=== PATIENT | male | born 2000 | race Caucasian/White ===

== ENCOUNTER 2024-09-20 17:56 | Emergency (ER) | payer BC, SELFPAY ==
--- NOTE | ~2024-09-20 | CT_ITS ---
CLINICAL INDICATION: Epigastric pain and coffee-ground emesis COMPARISON: None. TECHNIQUE: Multiple contiguous axial images of the abdomen and pelvis were performed following the ad ministration of with 100 mL Omnipaque-350 intravenous contrast The dose-length product (DLP) was 640.40 mGy-cm. Automated exposure control and iterative reconstruction technique were employed. FINDINGS/OBSERVATIONS: Visualized lower thorax: The bilateral lung bases are clear. The heart is of normal size, without pericardial effusion. Small hiatal hernia is noted Liver: The liver demonstrates homogeneous enhancement and is enlarged measuring 19 cm in longitudinal dimens ion. Gallbladder and biliary system: The gallbladder is only minimally distended, and otherwise unremarkable. Pancreas: The pancreas enhances homogeneously without ductal dilatation. Spleen: The spleen enhances homogeneously and is not enlarged measuring 9 cm in longitudinal dimension. Kidneys: The bilateral kidneys enhance symmetrically without hydronephrosis or renal calculi. Adrenal glands: Unremarkable. Gastrointestinal tract: The stomach is distended with simple fluid. Colonic diverticulosis without surrounding inflammatory change. No signs of obstruction present. Appendix: The air-filled appendix is of normal caliber (axial series, images 134 through 155) Vasculature: Unremarkable. Lymph nodes: No pathologically enlarged or morphologically suspicious lymph nodes within the retroperitoneum or at the root of the mesentery. Pelvic structures: The bladder is only minimally distended, and otherwise unremarkable. The prostate gland is not enlarged but demonstrates punctate calcifications. Body wall and musculoskeletal: Anterior superior compression of the L5 and S1 vertebral bodies, with sclerosis, likely chronic. IMPRESSION: No acute pathology is detected within the abdomen or pelvis, as detailed above. Reviewed, dictated and finalized at location A.
[2024-09-20 17:58] VITALS: BP 168/105; PULSE 110; RESP 16; TEMP 36.6; O2SAT 100
[2024-09-20] MEDS: PANTOPRAZOLE SODIUM IV 40 MG VIAL 80 MG IV PUSH (18:31)
[2024-09-20] MEDS: SODIUM CHLORIDE 0.9% IV 1,000 ML 999 ML IV CONT (18:31)
[2024-09-20] MEDS: ONDANSETRON INJ 4 MG/2 ML VIAL IV PUSH (18:31)
--- OUTSIDE RECORDS SUMMARY | 2024-09-20 18:31 | XMS_ITS | Clinical Summary ---
Author Organization [facility] Address [address] Abbasi: [place] [address] Care Team Providers Care Driller Hand Name Role Phone Unavailable Primary Care Provider Unavailabl e Allergies No known active allergies Medications benzonatate (TESSALON) 200 mg capsule Take 1 Capsule (200 mg) by mouth 3 times daily as needed for Cough. 30 Capsule 08/02/2024 Active Active Problems No known active problems Encounters Date Type Department Care Team Description 09/07/2024 External Device Data [facility] ABSTRACTION Provider, Abstract 08/27/2024 External Device Data [facility] ABSTRACTION Provider, Abstract 08/26/2024 External Device Data [facility] ABSTRACTION Provider, Abstract 08/23/2024 External Device Data [facility]STRACTION Provider, Abstract 08/10/2024 External Device Data [facility] ABSTRACTION Provider, Abstract 08/09/2024 External Device Data [facility] ABSTRACTION Provider, Abstract 08/09/2024 External Device Data [facility] ABSTRACTION Provider, Abstract 08/02/2024 9:15 AM COUNSELOR MANAGER Office Visit [facility] [address] [address] Joseph Delgadillo MD Upper respiratory tract infection, unspecified type (Primary Dx); Body aches from Last 3 Months Social History Tobacco Use Types Packs/Day Years Used Date Smoking Tobacco: Never Assessed Sex and Gender Information Value Date Recorded Sex Assigned at Not on file Legal Sex Male 2:28 PM COUNSELOR MANAGER Gender Identity Not on file Sexual Orientation Not on file Last Filed Vital Signs Vital Sign Reading Time Taken Comments Blood Pressure 124/72 08/02/2024 8:41 AM COUNSELOR MANAGER Pulse 134 08/02/2024 8:41 AM COUNSELOR MANAGER Temperature 37.4 C (99.3 F) 08/02/2024 8:41 AM COUNSELOR MANAGER Respiratory Rate 14 08/02/2024 8:41 AM COUNSELOR MANAGER Oxygen Saturation 98% 08/02/2024 8:41 AM COUNSELOR MANAGER Inhaled Oxygen Concentration - - Weight 83.9 kg (185 lb) 08/02/2024 8:41 AM COUNSELOR MANAGER Height 175.3 cm (5' 9 ) 08/02/2024 8:41 AM COUNSELOR MANAGER Body Mass Index 27.32 08/02/2024 8:41 AM COUNSELOR MANAGER Plan of Treatment Health Maintenance Due Date Last Done Comments HPV VACCINES (1 - Male 3-dose series) 2015 DTAP/TDAP/TD VACCINES (3 - Tdap) 2019 07/20/19, 2000 HEPATITIS B VACCINES (1 of 3 - 19+ 3-dose series) 2019 INFLUENZA VACCINE (#1) 2024 Procedures Procedure Name Priority Date/Time Associated Diagnosis Comments POC COVID-19 ANTIGEN Routine 08/02/2024 9:09 AM COUNSELOR MANAGER Body aches POC INFLUENZA A AND B ANTIGEN Routine 08/02/2024 9:00 AM COUNSELOR MANAGER Body aches from Last 3 Months Results * POC COVID-19 ANTIGEN (08/02/2024 9:09 AM COUNSELOR MANAGER) COVID-19 ANTIGEN POC Presumptively Negative Presumptively Negative [facility] INTERNAL KIT QC POC Pass Pass [facility] KIT LOT NUMBER POC [id number] [facility] KIT EXP DATE POC 04/30/2025 [facility] READ METHOD POC Visual [facility] Upper Respiratory 08/02/2024 9:09 AM COUNSELOR MANAGER Joseph Herrera Mai, MD POINT OF CARE TESTING Final Resu lt [facility] CLIA# [id number] [place] [address] * POC INFLUENZA A AND B ANTIGEN (08/02/2024 9:00 AM COUNSELOR MANAGER) INFLUENZA A AG POC Negative/Not Detected Negative/No t Detected [facility] INFLUENZA B AG POC Negative/Not Detected Negative/No t Detected [facility] INTERNAL KIT QC POC Pass Pass [facility] KIT LOT NUMBER POC [id number] [facility] KIT EXP DATE POC 03/21/2026 [facility] READ METHOD POC Visual [facility] Upper Respiratory ANTERIOR NARES SWAB / Unknown 08/02/2024 9:00 AM COUNSELOR MANAGER Joseph Herrera Mai, MD POINT OF CARE TESTING Final Resu lt Performing Organization Address City/[facility]/ZIP Co de Phone Number [facility] CLIA# [id number] [place] [address] from Last 3 Months Insurance [employer]
--- OUTSIDE RECORDS SUMMARY | 2024-09-20 18:31 | XMS_ITS ---
Author Organization Unknown Address [address] [place] [phone] Phone Care Team Providers Care Automatic Blocker Name Role Phone RADHA SHANKAR Registered Nurse Unavailable ABOOD ADELE Attending Unavailable NO PCP Primary Unavailable Social History Type Status Start Date End Date Code Code Syst em Sex Male Vital Signs Vital Sign Value Unit Merced Value Merced Unit Date/Time Recent/Initial? Code Code System Body Mass Index 26.58 kg/m2 07/04/2024 22:00 Initial 29311 -5 LOINC Systolic Blood Pressure 147 mm[Hg] 07/04/2024 22:35 Most Recent 8480- 6 LOINC Diastolic Blood Pressure 94 mm[Hg] 07/04/2024 22:35 Most Recent 8462- 4 LOINC Systolic Blood Pressure 166 mm[Hg] 07/04/2024 22:00 Initial 8480- 6 LOINC Diastolic Blood Pressure 99 mm[Hg] 07/04/2024 22:00 Initial 8462- 4 LOINC Body Surface Area 1.99 m2 07/04/2024 22:00 Initial 3140- 1 LOINC Height 175.260 0 cm 69.00 in 07/04/2024 22:00 Initial 8302- 2 LOINC O2 Saturation 98 % 2024 22:35 Most Recent 34965 -5 LOINC O2 Saturation 99 % 2024 22:00 Initial 68520 -5 LOINC Pulse 110.0 /min 07/04/2024 22:35 Most Recent 8867- 4 LOINC Pulse 95.0 /min 07/04/2024 22:00 Initial 8867- 4 LOINC Respiration 18 /min 07/04/19 22:35 Most Recent 9279- 1 LOINC Respiration 18 /min 07/04/19 22:00 Initial 9279- 1 LOINC Temperature 36.6 Mara 97.9 F 07/04/19 22:00 Initial 8310- 5 LOINC Weight 81.65 kg 180.00 lbs 07/04/2024 22:00 Initial 39512 -7 LOINC Assessment You had the following problems:HYPERTENSION Hospital Discharge Instructions Should you have any questions prior to discharge, please contact a member of your healthcare team. If you have left the hospital and have any questions, please contact your primary care physician. Reason For Referral No Data Found Problems Problem Start Date Resolved Date Status Code Code System HYPERTENSION active 92192608 SNOMED- CT Allergies and Adverse Reactions Allergy Substance Reaction Severity Start Date Concern Status Co de Code System No Known Drug Allergies Active 238385021 SNOMED-CT Plan of Treatment No Data Found Encounters Encounter Diagnosis Start Date Code Code Sys tem Bilateral photokeratitis of eyes 07/04/2024 52853851 1043312 SNOMED-CT Personal Care Team Section Performer Name Performer Role Active Date Inactive Da pasha
[2024-09-20 18:33] VITALS: BP 144/92; BP 144/96; BP 147/93; PULSE 113; PULSE 89; PULSE 92
[2024-09-20 18:34] LABS: Basophils Percent Auto 0.2 % (0.2-1.2); Eosinophils Absolute Auto 0.1 K/mm3 (0-0.3); Eosinophils Percent Auto 0.5 % (0-4.4); Hematocrit 45.2 % (42.0-52.0); Hemoglobin 15.4 g/dL (14.0-18.0); Immature Granulocyte Absolute 0.02 K/mm3 (0.00-0.031); Immature Granulocyte Percent A 0.2 % (0-0.5); Lymphocytes Absolute Auto 1.89 K/mm3 (0.9-3.2); Lymphocytes Percent Auto 18.6 % (18.3-44.2); Mean Corpuscular HGB Conc 34.1 g/dl (32-36); Mean Corpuscular Hemoglobin 30.3 pg (26-34); Mean Platelet Volume 8.8 fl (7.4-10.4); Monocytes Absolute Auto 0.8 K/mm3 (0.1-0.6); Monocytes Percent Auto 8.1 % (2.6-8.5); Neutrophils Absolute Auto 7.3 K/mm3 (1.3-6.7); Neutrophils Percent Auto 72.4 % (45.5-73.1); Platelet Count Result 398 k/mm3 (150-375); Red Blood Count 5.08 M/mm3 (4.6-6.20); Red Cell Distribution Width 12.3 % (11.5-14.5); White Blood Count 10.1 K/mm3 (4.5-10.0)
[2024-09-20 18:45] LABS: Alanine Aminotransferase 77 U/L (6-50); Albumin Level 5.3 g/dL (3.5-5.1); Alkaline Phosphatase 101 U/L (38-126); Anion Gap 15 mmol/L (4-12); Aspartate Amino Transferase 56 U/L (17-59); Bilirubin,Total 1.1 mg/dL (0.2-1.3); Blood Urea Nitrogen 15 mg/dL (9-20); Calcium 9.9 mg/dL (8.4-10.2); Carbon Dioxide 27 mmol/L (22-30); Chloride 98 mmol/L (98-107); Estimated CRCL calculation 118 ml/min; Estimated Glomerular Filt Rate > 60; Glucose 93 mg/dL (65-110); Lipase 95 U/L (23-300); Partial Thromboplastin Time 25.9 Seconds (22.3-36.8); Potassium 3.9 mmol/L (3.4-5.0); Prothrombin Time 13.4 Seconds (11.1-14.7); Sodium 140 mmol/L (137-145)
--- NOTE | 2024-09-20 19:00 | ED_ITS ---
HPI - GI Bleed General Chief complaint: GI Bleed Stated complaint: vomiting dark red blood Time Seen by Provider: 09/20/24 18:10 Source: patient Mode of arrival: ambulatory Limitations: no limitations History of Present Illness HPI Narrative: This is a 24 year old male that presents to the ER for coffee ground emesis. Reports last night he was having some trouble with reflux. He did not take any medication for this. He reports he intermittently has reflux symptoms. Is not on any medications chronically. He denies any recent NSAID use. Today he had about 4-5 episodes of coffee-ground emesis. He does report most recent episode of vomiting did not appear to contain any blood. Related Data Allergies Allergy/AdvReac Type Severity Reaction Status Date / Time No Known Allergies Allergy Verified 09/20/24 17:57 Review of Systems 2 Review of Systems: CONSTITUTIONAL: Denies fever GASTROINTESTINAL: Reports abdominal pain, nausea, vomiting All systems reviewed & are unremarkable except as noted in HPI and below PMFSH Past Medical History Medical History (Updated 09/20/24 @ 20:36 by Rosanna Rogers PA-C) No active medical problems Exam 2 Narrative: GENERAL: Well-appearing, well-nourished, and in no acute distress. HEAD: Normocephalic, atraumatic. EYES: EOMI. CHEST: Clear to auscultation. No respiratory distress. No wheezes rales or rhonchi HEART: Regular rate and rhythm. No murmur heard. Normal peripheral pulses. ABDOMEN: Soft, nontender, nondistended, normal active bowel sounds. EXTREMITIES: Normal range of motion. No edema. SKIN: Warm, dry, no rash. NEURO: No focal deficits. Alert and oriented x3. PSYCH: Normal mood and affect Course Course Emergency Course: patient updated on workup and agrees with plan of care. resting comfortably. no episodes of vomiting in the ER Vital Signs Vital signs: Vital Signs Temperature 97.9 F 09/20/24 17:58 Pulse Rate 110 H 09/20/24 17:58 Respiratory Rate 16 09/20/24 17:58 Blood Pressure 168/105 H 09/20/24 17:58 Pulse Oximetry 100 09/20/24 17:58 Oxygen Delivery Room Air 09/20/24 17:58 Temperature 97.9 F 09/20/24 17:58 Pulse Rate 113 H 09/20/24 18:33 Respiratory Rate 16 09/20/24 17:58 Blood Pressure 144/96 H 09/20/24 18:33 Pulse Oximetry 100 09/20/24 17:58 Oxygen Delivery Room Air 09/20/24 17:58 MDM - GI Bleed MDM Narrative Medical decision making narrative: Patient presents to the emergency department after a couple episodes of coffee- ground emesis today. He is afebrile and nontoxic appearing. Tachycardic arrival, this normalized with IV fluids. Hemoglobin is normal. Metabolic panel with mild elevation in ALT. Lipase is normal. CT abdomen and pelvis without acute findings. Patient given dose of Protonix and Zofran in the ER. patient updated on workup and agrees with plan of care. resting comfortably. no episodes of vomiting in the ER. Will be continued on Protonix. Instructed to have follow-up with Gastroenterology. He was given warnings to return to the ER Differential Diagnosis Differential diagnosis: Likely esophageal varices, gastritis, Nicolle-Fenton syndrome and Upper gastrointestinal hemorrhage Lab Data Attestation: I reviewed the patient's lab results. 09/20/24 18:26 09/20/24 18:26 Labs: Lab Results 09/20/24 Range/Units 18:26 WBC 10.1 H (4.5-10.0) K/mm3 RBC 5.08 (4.6-6.20) M/mm3 Hgb 15.4 (14.0-18.0) g/dL Hct 45.2 (42.0-52.0) % MCV 89.0 (80-100) fl MCH 30.3 (26-34) pg MCHC 34.1 (32-36) g/dl RDW 12.3 (11.5-14.5) % Plt Count 398 H (150-375) k/mm3 MPV 8.8 (7.4-10.4) fl Immature Gran % (Auto) 0.2 (0-0.5) % Neut % (Auto) 72.4 (45.5-73.1) % Lymph % (Auto) 18.6 (18.3-44.2) % Roane % (Auto) 8.1 (2.6-8.5) % Eos % (Auto) 0.5 (0-4.4) % Baso % (Auto) 0.2 (0.2-1.2) % Lymph # (Auto) 1.89 (0.9-3.2) K/mm3 Roane # (Auto) 0.8 H (0.1-0.6) K/mm3 Eos # (Auto) 0.1 (0-0.3) K/mm3 Baso # (Auto) 0.0 (0.0-0.1) K/mm3 Abs Immat Gran (auto) 0.02 (0.00-0.031) K/mm3 Absolute Neuts (auto) 7.3 H (1.3-6.7) K/mm3 Absolute Nucleated RBC 0.000 (0.0-0.012) K/mm3 Nucleated RBC % 0.0 (0.0-0.2) % PT 13.4 (11.1-14.7) Seconds INR 1.0 APTT 25.9 (22.3-36.8) Seconds Sodium 140 (137-145) mmol/L Potassium 3.9 (3.4-5.0) mmol/L Chloride 98 (98-107) mmol/L Carbon Dioxide 27 (22-30) mmol/L Anion Gap 15 H (4-12) mmol/L BUN 15 (9-20) mg/dL Creatinine 0.84 (0.7-1.3) mg/dL Estim Creat Clear Calc 118 ml/min Estimated GFR > 60 (59 - ) Glucose 93 (65-110) mg/dL Calcium 9.9 (8.4-10.2) mg/dL Total Bilirubin 1.1 (0.2-1.3) mg/dL AST 56 (17-59) U/L ALT 77 H (6-50) U/L Alkaline Phosphatase 101 (38-126) U/L Total Protein 9.0 H (6.3-8.2) g/dL Albumin 5.3 H (3.5-5.1) g/dL Lipase 95 (23-300) U/L Blood Type O Positive Antibody Screen Negative Imaging Data Radiologist's impression: ITS Impressions Abdomen/Pelvis CT 09/20/24 20:06 IMPRESSION: No acute pathology is detected within the abdomen or pelvis, as detailed above. Critical Care Time Critical Care Time Critical Care Time: No Discharge Plan Discharge Clinical Impression: Gastritis Qualifiers: Gastritis type: unspecified gastritis Chronicity: acute Gastritis bleeding: w ith bleeding Qualified Code(s): K29.01 - Acute gastritis with bleeding Patient Disposition: Home, Self-Care Condition: Improved Instructions: Gastritis (ED) Additional Instructions: Return to the ER if you experience fever, abdominal pain with nausea and vomiting, you are unable to keep down liquids or solids, worsening bleeding, or any other symptoms that are concerning to you Remain well hydrated. Avoid spicy/acidic foods, avoid eating just before bedtime. Avoid alcohol. Avoid anti-inflammatories (Ibuprofen, Naproxen, Aleve, etc). Take Protonix as prescribed Follow up with GI Patient Language: Indonesian Prescriptions: New pantoprazole 40 mg tablet,delayed release (DR/EC) 40 mg PO HS 28 Days Qty: 28 0RF Follow-up/Referrals: PHYSICIAN NOT ON STAFF,NONSTAFF [Primary Care Provider] - Joey Wheat MD [Physician] -
[2024-09-20 20:53] VITALS: BP 161/98; PULSE 102; RESP 18; O2SAT 99
[2024-09-20 20:54] VITALS: BP 161/98; PULSE 102; RESP 18; O2SAT 99
== END 2024-09-20 20:56 | disposition home or self-care (01) ==
PROVIDERS: Emergency Provider Physician Assistant
DX: K29.01 Acute gastritis with bleeding (principal)
CPT/HCPCS: 36415; 74177; 80053; 83690; 85025; 85610; 85730; 86850; 86900; 86901; 96361; 96374; 96375; 99284; J2405; J2470; J7030; Q9967